=== PATIENT | male | born 2000 | race African-American/Black ===

== ENCOUNTER 2022-06-08 09:51 | Emergency (ER) | payer SELFPAY | END 2022-06-08 15:29 | disposition left against medical advice (07) | LOC: EDBD 09:51 → ERS 09:51 | DX: R07.89 Other chest pain (principal); R00.1 Bradycardia, unspecified | CPT/HCPCS: 71045; 93005 ==

== ENCOUNTER 2022-11-17 02:24 | Emergency (ER) | payer SELFPAY ==
[2022-11-17 02:47] LABS: #Basophils 0.1 thou/uL (0.0-0.2); #Monocytes 0.8 thou/uL (0.11-0.59); #Neutrophils 8.4 thou/uL (1.40-6.50); %Basophils 0.7 % (0.0-1.0); %Eosinophils 0.1 % (0.0-10.0); %Monocytes 6.1 % (0.0-10.0); %Neutrophils 62.8 % (42.0-75.0); Mean Corpuscular HGB CONC 31.8 g/dL (32.0-36.0); Mean Corpuscular Hemoglobin 27.5 pg (27.0-31.0); Mean Corpuscular Volume 86.3 fl (78.0-98.0); Mean Platelet Volume 11.2 fL (7.4-10.4); Platelet Count 235 10x3/uL (130-400); RBC Distribution Width 13.4 % (11.5-14.5); White Blood Cell (WBC) Count 13.4 10x3/uL (4.8-10.8)
[2022-11-17] MEDS ORDERED: Ondansetron PF 4 MG/2 ML Vial ONE (02:59)
[2022-11-17] MEDS ORDERED: Boostrix 0.5 ML (Tdap) VIAL (>/=7 yrs of age) ONE (02:59)
[2022-11-17] MEDS ORDERED: Ketorolac Tromethamine 30 MG/ML VIAL ONE (03:02)
[2022-11-17 03:10] LABS: ALT (SGPT) Less than 7 U/L (8-55); AST (SGOT) 22 U/L (5-34); Albumin 4.6 g/dL (3.5-5.0); Alcohol 97.4 mg/dL (Less than 10); Alkaline Phosphatase 62 U/L (40-110); Anion Gap 25 mmol/L (10-20); BUN (Urea Nitrogen) 9 mg/dL (8.9-20.6); Bilirubin, Total 0.3 mg/dL (0.2-1.2); Calc. Creatinine Clearance 0 mL/min (70-130); Calcium 9.4 mg/dL (7.8-10.44); Carbon Dioxide 10 mmol/L (22-29); Chloride 105 mmol/L (98-107); Estimated GFR 80; Globulin 3.4 g/dL (2.4-3.5); Glucose 110 mg/dL (70-105); Lipase 10 U/L (8-78); Potassium 3.7 mmol/L (3.5-5.1); Sodium 136 mmol/L (136-145)
[2022-11-17 04:01] LABS: INR-International Normal Ratio 1.1; PTT 26.6 sec (22.9-36.1); Prothrombin Time 14.7 sec (12.0-14.7)
[2022-11-17] MEDS ORDERED: Iopamidol-370 76% 500 ML MDV (1 ML CHARGE) ONE (08:49)
== END 2022-11-17 03:51 | disposition home or self-care (01) ==
LOC: ERS 02:24
DX: S21.131A Puncture wound without foreign body of right front wall of thorax without penetration into thoracic cavity, initial encounter (principal); D72.829 Elevated white blood cell count, unspecified; W34.00XA Accidental discharge from unspecified firearms or gun, initial encounter; Z23 Encounter for immunization
CPT/HCPCS: 36415; 71045; 71260; 74177; 80053; 80307; 83605; 83690; 85025; 85610; 85730; 86850; 86900; 86901; 90715; J1885; J2405; Q9967